=== PATIENT | male | born 1965 | race Caucasian/White ===

== ENCOUNTER 2022-07-13 08:45 | Emergency (ER) | payer OTHER ==
[~2022-07-13] VITALS: Ht 195.6 cm; Wt 99.8 kg
[~2022-07-13 08:45] MED LIST: CYCL10 PO; Carbamazepine100 MG PO; Doxycycline Mo100 M1; FAMO20 PO; FLUT.05NI; GABA300 PO; KRILL OIL 1,001 EACH PO; Synthroid200 MCG PO
[2022-07-13 09:47] LABS: Albumin, Blood 2.7 g/dL (3.4-5.0); Albumin/Globulin Ratio 0.8 (0.8-1.8); Bilirubin, Total 0.1 mg/dL (0.1-1.0); Bun/Creatinine Ratio 16.5 (12.0-20.0); Calcium, Blood 8.7 mg/dL (8.5-10.1); Creatinine, Blood 0.73 mg/dL (0.60-1.20); Globulin, Blood 3.2 g/dL (2.2-4.0); Potassium, Blood 4.4 mmol/L (3.5-5.5); Total Protein, Blood 5.9 g/dL (6.4-8.2)
== END 2022-07-13 12:19 | disposition home or self-care (01) ==
LOC: ER 08:45
PROVIDERS: Student in an Organized Health Care Education/Training Program
DX: R60.0 Localized edema (principal); Z88.7 Allergy status to serum and vaccine; Z79.899 Other long term (current) drug therapy
CPT/HCPCS: 36415; 80053; 83880; 93970

== ENCOUNTER → 2022-07-22 | Outpatient (CLI) | payer OTHER ==
[2022-07-22 13:45] LABS: Source, Urine Clean Catch
[2022-07-22 14:22] LABS: Bilirubin, Urine Neg (Neg); Blood, Urine Neg (Neg); Color, Urine Yellow (P-Yellow); Glucose Qualitative, Urine Neg (Neg); Ketones, Urine Neg (Neg); Leukocyte Esterase, Urine Neg (Neg); Nitrite, Urine Neg (Neg); Protein, Urine 1+ (Neg); Urobilinogen, Urine NORM (Normal)
[2022-07-22 14:44] LABS: Appearance, Urine Hazy (Clear); Mucus Heavy (0-Heavy)
[2022-07-22 14:46] LABS: Squamous Epithelial Cells Rare /hpf (Few)
[2022-07-22 14:47] LABS: Bacteria Mod /hpf
== END | disposition home or self-care (01) ==
LOC: LAB HH 12:50
PROVIDERS: Family Medicine
DX: N39.0 Urinary tract infection, site not specified (principal)
CPT/HCPCS: 81001; 87086